=== PATIENT | female | born 1955 | race Caucasian/White ===

== ENCOUNTER 2018-03-12 11:37 | Day surgery (SDC) | payer OTHER ==
[2018-03-12] MEDS ORDERED: PROPOFOL 60 ML (12:32)
[2018-03-12] MEDS ORDERED: LIDOCAINE 2% (SDV) 5 ML INJ (12:33)
[2018-03-12] MEDS ORDERED: FAMOTIDINE 20 MG INJ (12:37)
[2018-03-12] MEDS ORDERED: ONDANSETRON 4 MG INJ (12:37)
== END 2018-03-12 17:09 | disposition home or self-care (01) ==
LOC: GIL 11:37
DX: Z12.11 Encounter for screening for malignant neoplasm of colon (principal); K29.30 Chronic superficial gastritis without bleeding; K57.90 Diverticulosis of intestine, part unspecified, without perforation or abscess without bleeding; K64.8 Other hemorrhoids; K64.4 Residual hemorrhoidal skin tags; E03.9 Hypothyroidism, unspecified; E66.9 Obesity, unspecified; Z68.35 Body mass index [BMI] 35.0-35.9, adult
CPT/HCPCS: 43239; 88305; 88312